=== PATIENT | female | born 1990 ===

== ENCOUNTER 2022-06-14 05:53 | Day surgery (SDC) | payer OTHER ==
[2022-06-14] MEDS ORDERED: PEPCID AC20 MG PO (09:12)
== END 2022-06-14 11:00 | disposition home or self-care (01) ==
LOC: AMB-ENDOS 05:53
PROVIDERS: ATTEND Surgery
DX: K29.00 Acute gastritis without bleeding (principal); Z20.822 Contact with and (suspected) exposure to COVID-19; K44.9 Diaphragmatic hernia without obstruction or gangrene; I10 Essential (primary) hypertension